=== PATIENT | female | born 1945 | race Caucasian/White ===

== ENCOUNTER 2019-03-28 09:22 | Inpatient (IN) | payer MEDICARE, OTHER ==
[2019-03-28] VITALS (8 sets, daily range): BP systolic 164–204; BP diastolic 87–112
[~2019-03-28] VITALS: Ht 162.6 cm; Wt 74.6 kg
[2019-03-28] MEDS ORDERED: NITROGLYCERIN 0.4 MG SL TABS BTL 25'S SL STA (09:45)
[2019-03-28] MEDS ORDERED: ASPIRIN 81 MG CHEW (CHILDREN'S ASA) PO ONE (09:45)
[2019-03-28] MEDS ORDERED: ASPIRIN 81 MG CHEW (CHILDREN'S ASA) ONE (09:46)
--- NOTE | 2019-03-28 09:51 | ED Chest Pain ---
General Chief Complaint: Chest Pain Stated Complaint: STERNAL PAIN; WEAKNESS Source: patient Exam Limitations: no limitations History of Present Illness Date Seen by Provider: Mar 28, 2019 Time Seen by Provider: 09:48 Initial Comments This 74 year old white female presents with1 hour of severe chest pain which was sharp radiating to her arms and neck. No SOB, diaphoresis, or nausea. No similar episodes in past. Occured while sitting. Has been working hard past few days. Macular deg but no other noted sig PMH. Mother had rheumatic fever but no other sig FH. No smoking, drinking, drugs. Allergies and Home Medications Allergies Coded Allergies: No Known Drug Allergies (Unverified , 03/28/19) Patient Home Medication List Home Medication List Reviewed: Yes Review of Systems Review of Systems Constitutional: No diaphoresis EENTM: No Symptoms Reported Respiratory: Denies Shortness of Air Cardiovascular: See HPI, Chest Pain; Denies Irregular Heart Rate, Denies Palpitations, Denies Syncope Gastrointestinal: Denies Abdominal Pain, Denies Diarrhea Genitourinary: No Symptoms Reported Musculoskeletal: No back pain Skin: No change in color, No rash Psychiatric/Neurological: No Symptoms Reported Endocrine: No Symptoms Reported Hematologic/Lymphatic: No Symptoms Reported Past Zltttak-Bkobbi-Omnhym Hx Past Med/Social Hx: Reviewed Nursing Past Med/Soc Hx Patient Social History Recent Foreign Travel: No Physical Exam Vital Signs Vital Signs - First Documented 03/28/19 09:25 Temp 36.7 Pulse 94 Resp 16 B/P (MAP) 191/93 (125) Pulse Ox 97 O2 Delivery Room Air Capillary Refill : Height, Weight, BMI Height: '" Weight: lbs. oz. kg; BMI Method: General Appearance: No Apparent Distress, WD/WN HEENT: Normal ENT Inspection Neck: Normal Inspection Respiratory: Chest Non Tender, Lungs Clear, Normal Breath Sounds, No Respiratory Distress Cardiovascular: Regular Rate, Rhythm, No Murmur, Normal Peripheral Pulses Gastrointestinal: Normal Bowel Sounds, Non Tender, Soft Extremity: Normal Capillary Refill, Normal Inspection Neurologic/Psychiatric: Oriented x3, No Motor/Sensory Deficits, Normal Mood/Affect Skin: Normal Color, Warm/Dry Progress/Results/Core Measures Results/Orders Lab Results Laboratory Tests Test 03/28/19 09:32 Range/Units White Blood Count 5.8 4.3-11.0 10^3/uL Red Blood Count 4.24 L 4.35-5.85 10^6/uL Hemoglobin 12.6 11.5-16.0 G/DL Hematocrit 38 35-52 % Mean Corpuscular Volume 90 80-99 FL Mean Corpuscular Hemoglobin 30 25-34 PG Mean Corpuscular Hemoglobin Concent 33 32-36 G/DL Red Cell Distribution Width 13.1 10.0-14.5 % Platelet Count 260 130-400 10^3/uL Mean Platelet Volume 10.1 7.4-10.4 FL Neutrophils (%) (Auto) 50 42-75 % Lymphocytes (%) (Auto) 37 12-44 % Monocytes (%) (Auto) 9 0-12 % Eosinophils (%) (Auto) 4 0-10 % Basophils (%) (Auto) 0 0-10 % Neutrophils # (Auto) 2.9 1.8-7.8 X 10^3 Lymphocytes # (Auto) 2.2 1.0-4.0 X 10^3 Monocytes # (Auto) 0.5 0.0-1.0 X 10^3 Eosinophils # (Auto) 0.2 0.0-0.3 10^3/uL Basophils # (Auto) 0.0 0.0-0.1 10^3/uL Prothrombin Time 13.4 12.2-14.7 SEC INR Comment 1.0 0.8-1.4 Activated Partial Thromboplast Time 29 24-35 SEC Sodium Level 140 135-145 MMOL/L Potassium Level 3.6 3.6-5.0 MMOL/L Chloride Level 102 98-107 MMOL/L Carbon Dioxide Level 25 21-32 MMOL/L Anion Gap 13 5-14 MMOL/L Blood Urea Nitrogen 14 7-18 MG/DL Creatinine 0.73 0.60-1.30 MG/DL Estimat Glomerular Filtration Rate > 60 BUN/Creatinine Ratio 19 Glucose Level 118 H 70-105 MG/DL Calcium Level 9.4 8.5-10.1 MG/DL Corrected Calcium 9.1 8.5-10.1 MG/DL Magnesium Level 2.1 1.6-2.4 MG/DL Total Bilirubin 0.5 0.1-1.0 MG/DL Aspartate Amino Transf (AST/SGOT) 24 5-34 U/L Alanine Aminotransferase (ALT/SGPT) 15 0-55 U/L Alkaline Phosphatase 95 40-136 U/L Myoglobin 64.5 10.0-92.0 NG/ML Troponin I < 0.30 <0.30 NG/ML Total Protein 7.6 6.4-8.2 GM/DL Albumin 4.4 3.2-4.5 GM/DL My Orders Orders - TASHA ROLON MD Cbc With Automated Diff (03/28/19 09:44) Magnesium (03/28/19 09:44) Chest 1 View Ap/Pa Only (03/28/19 09:44) Ekg Tracing (03/28/19 09:44) Comprehensive Metabolic Panel (03/28/19 09:44) Myoglobin Serum (03/28/19 09:44) Protime With Inr (03/28/19:44) Partial Thromboplastin Time (03/28/19 09:44) O2 (03/28/19 09:44) Monitor-Rhythm Ecg Trace Only (03/28/19 09:44) Lipid Panel (03/29/19 06:00) Ed Iv/Invasive Line Start (03/28/19 09:44) Troponin I Fs (03/28/19 09:44) Aspirin Chewable Tablet (Baby Aspirin Ch (03/28/19 09:45) Nitroglycerin 0.4 Mg Btl 25's (Nitrostat (03/28/19 09:45) Aspirin Chewable Tablet (Baby Aspirin Ch (03/28/19 09:46) Nitroglycerin Ointment (Nitrobid Ointme (03/28/19 10:45) Medications Given in ED Current Medications Medications Dose Ordered Sig/Yolanda Route Start Time Stop Time Status Last Admin Dose Admin Aspirin 324 mg ONCE ONCE PO 03/28/19 09:45 03/28/19 09:48 DC 03/28/19 09:54 324 MG Nitroglycerin 1 inch ONCE ONCE TOP 03/28/19 10:45 03/28/19 10:46 DC 03/28/19 10:41 1 INCH Vital Signs/I&O 03/28/19 03/28/19 09:25 09:25 Temp 36.7 Pulse 94 Resp 16 B/P (MAP) 191/93 (125) Pulse Ox 97 O2 Delivery Room Air Room Air Progress Progress Note : Time: 10:50 Progress Note Patient's evaluation in the ED demonstrated non-specific EKG changes and a normal troponin. Patient received ASA orally. Her chest pain spontaneously abated after an hour and before receiving nitroglycerin SL. An inch of nitro paste was applied to her anterior chest wall. Telephone consultation was undertaken with Drs. Duvall and Michelle. The patient was transferred for further evaluation to [facility] via EMS in stable condition. Departure Communication (Admissions) Time/Spoke to Admitting Phy: 11:03 Dr. Martinez Time/Spoke to Consulting Phy: 11:03 Dr. Duvall. Impression Primary Impression: Chest pain Qualified Codes: R07.9 - Chest pain, unspecified Disposition: 09 ADMITTED INPATIENT Condition: Improved Admissions Decision to Admit Reason: Admit from ER (General) Decision to Admit/Date: Mar 28, 2019 Time/Decision to Admit Time: 11:04 Departure-Patient Inst. Referrals: NO,LOCAL PHYSICIAN (PCP/Family) Primary Care Physician TASHA ROLON MD Mar 28, 2019 09:51
[2019-03-28 09:52] LABS: HEMATOCRIT 38 % (35-52); HEMOGLOBIN 12.6 G/DL (11.5-16.0); MEAN CORPUSCULAR HEMOGLOBIN 30 PG (25-34); MEAN CORPUSCULAR VOLUME 90 FL (80-99); WHITE BLOOD COUNT 5.8 10^3/uL (4.3-11.0)
[2019-03-28 09:53] LABS: BASOPHILS % (AUTO) 0 % (0-10); EOSINOPHILS # (AUTO) 0.2 10^3/uL (0.0-0.3); EOSINOPHILS % (AUTO) 4 % (0-10); LYMPHOCYTES # (AUTO) 2.2 X 10^3 (1.0-4.0); LYMPHOCYTES % (AUTO) 37 % (12-44); MEAN CORPUSCULAR HGB CONC 33 G/DL (32-36); MEAN PLATELET VOLUME 10.1 FL (7.4-10.4); MONOCYTES # (AUTO) 0.5 X 10^3 (0.0-1.0); MONOCYTES % (AUTO) 9 % (0-12); NEUTROPHILS # (AUTO) 2.9 X 10^3 (1.8-7.8); NEUTROPHILS % (AUTO) 50 % (42-75); PLATELET COUNT 260 10^3/uL (130-400); RED CELL DISTRIBUTION WIDTH 13.1 % (10.0-14.5)
[2019-03-28 09:59] LABS: PROTHROMBIN TIME PATIENT 13.4 SEC (12.2-14.7)
--- NOTE | 2019-03-28 10:00 | Diagnostic Imaging Report ---
PATIENT HISTORY: Chest pain. TECHNIQUE: Single frontal view of the chest. COMPARISON: None FINDINGS: The lung volumes are normal. No focal consolidation is seen. No large pleural effusion or pneumothorax is seen. The cardiomediastinal silhouette is normal in size and contour. No acute osseous abnormality is seen. IMPRESSION: No acute pulmonary abnormality seen. Dictated by: Dictated on workstation # [id number]
[2019-03-28 10:14] LABS: BUN/CREATININE RATIO 19; CALCIUM 9.4 MG/DL (8.5-10.1); CARBON DIOXIDE 25 MMOL/L (21-32); CHLORIDE 102 MMOL/L (98-107); CREATININE SERUM 0.73 MG/DL (0.60-1.30); GFR ESTIMATED > 60; GLUCOSE 118 MG/DL (70-105); MAGNESIUM 2.1 MG/DL (1.6-2.4); POTASSIUM 3.6 MMOL/L (3.6-5.0); SODIUM 140 MMOL/L (135-145)
[2019-03-28 10:15] LABS: ALANINE AMINOTRANSFERASE 15 U/L (0-55); ALBUMIN 4.4 GM/DL (3.2-4.5); ALKALINE PHOSPHATASE 95 U/L (40-136); BILIRUBIN,TOTAL 0.5 MG/DL (0.1-1.0); TOTAL PROTEIN 7.6 GM/DL (6.4-8.2)
[2019-03-28] MEDS ORDERED: NITROGLYCERIN 2% OINT 1 GM UNIT DOSE PACKET TOP ONE (10:45)
[2019-03-28] MEDS ORDERED: NS IV 1000 ML 1,000 ML ONE (13:33)
[2019-03-28] MEDS ORDERED: CATHETER FLUSH 10 ML SYR IV PRN (13:45)
[2019-03-28] MEDS: NS IV 1000 ML 1,000 ML IV SCH (14:14)
[2019-03-28] MEDS ORDERED: FLU QUADRIvalent (5+ YOA) 2019-2020 (AFLURIA) 0.5 ML IM ONE (14:30)
[2019-03-28] MEDS ORDERED: amLODIPine 10 MG (NORVASC) TAB PO NR (14:40)
--- NOTE | 2019-03-28 14:41 | NUR ---
Reported pt's blood pressure to Dr. Duvall, new orders received.
--- NOTE | 2019-03-28 16:11 | Consultation-Cardiology ---
HPI-Cardiology Cardiology Consultation: Date of Consultation 03/28/19 Date of Admission Attending Physician Lray Martinez MD Admitting Physician Candi,Local Physician Consulting Physician Neha DUVALL MD HPI: Time Seen by a Provider: 16:00 Chief Complaint: Chest pain This is a 74 -year-old lady who denies any significant post medical history or post cardiac history. She denies active smoking. Her mother had rheumatic fever but no premature CAD in the family. She presented with one hour of severe chest pain radiating to her arms and neck. No associated cardiac symptoms. No exacerbating or relieving factors. Moderate to severe intensity. Substernal. Review of Systems-Cardiology Review of Systems Constitutional: As described under HPI; No As described under HPI, No no symptoms reported, No chills, No fever, No lightheadedness Eyes: No As described under HPI, No no symptoms reported, No blindness, No blurred vision, No contact lenses, No drainage, No decreased acuity, No foreign body sensation, No pain, No vision change Ears/Nose/Throat: No As described under HPI, No no symptoms reported, No chronic hearing loss, No ear discharge, No ear pain, No nasal drainage, No ulcerations Respiratory: No no symptoms reported; As described under HPI; No As described under HPI, No cough, No orthopnea, No shortness of breath, No SOB with excertion Cardiovascular: No no symptoms reported; As described under HPI; No As described under HPI; chest pain; No edema, No irregular heart rate, No lightheadedness, No palpitations Gastrointestinal: No no symptoms reported, No As described under HPI, No abdomen distended, No abdominal pain, No blood streaked bowels, No constipation, No diarrhea, No nausea, No vomiting, No stool coloration changes Genitourinary: No As described under HPI, No burning, No dysuria, No discharge, No frequency, No flank pain, No hematuria, No urgency : Yes : No Skin: No rash, No skin related problems, No ulcerations Psychiatric/Neurological: No anxiety, No depression, No seizure, No focal weakness, No syncope Hematologic: No bleeding abnormalities IVB-Jgfhlv-Gkynbv Hx Patient Social History Alcohol Use: Denies Use Recreational Drug Use: No Smoking Status: Never a Smoker 2nd Hand Smoke Exposure: No Recent Foreign Travel: No Recent Infectious Disease Expo: No Past Medical History PMH As described under Assessment. Allergies and Home Medications Allergies Coded Allergies: No Known Drug Allergies (Unverified , 03/28/19) Home Medications Vit A/Vit C/Vit E/Zinc/Copper 1 Each Tablet, 1 TAB PO BID, (Reported) Patient Home Medication List Home Medication List Reviewed: Yes Physical Exam-Cardiology Physical Exam Vital Signs/I&O 03/29/19 03/29/19 03/29/19 03/29/19 06:36 08:00 08:00 09:00 Temp 37.1 Pulse 73 88 Resp 16 B/P (MAP) 140/76 (97) 140/76 (97) Pulse Ox 98 98 O2 Delivery Room Air Room Air Room Air 03/29/19 03/29/19 03/29/19 03/29/19 09:00 12:00 12:20 12:36 Pulse 86 B/P (MAP) 148/89 (108) Pulse Ox 95 97 O2 Delivery Room Air Room Air Room Air 03/29/19 16:00 Temp 37.1 Pulse 70 Resp 21 B/P (MAP) 139/97 (111) Pulse Ox 97 O2 Delivery Room Air 03/29/19 00:00 Intake Total 250 ml Output Total 0 ml Balance 250 ml Capillary Refill : Less Than 3 Seconds Constitutional: appears stated age, AAO x 3; No apparent distress; well- developed, well-nourished HEENT: PERRL; No discharge; hearing is well preserved, oral hygience is good; No ulceration, No xanthelasmas are seen Neck: No carotid bruit; carotid pulses are 2 + bilaterally Respiratory: chest is bilaterally symmetric, lungs clear to auscultation Cardiovascular: regular rate-rhythm, S1 and S2 Gastrointestinal: soft, audible bowel sounds; No spleenomegaly Rectal: deferred Extremities: normal range of motion, non-tender, normal inspection; No clubbing, No cyanosis; no lower extremity edema bilateral; No significant edema Neurologic/Psychiatric: no motor/sensory deficits, alert, normal mood/affect, oriented x 3, power is 5/5 both on sides Skin: normal color, warm/dry; No rash, No ulcerations Data Review Labs Laboratory Tests 03/28/19 19:40: Troponin I 0.145H 03/29/19 01:31: Troponin I 0.093H 03/29/19 03:08: White Blood Count 6.4, Red Blood Count 3.90L, Hemoglobin 11.4L, Hematocrit 35, Mean Corpuscular Volume 89, Mean Corpuscular Hemoglobin 29, Mean Corpuscular Hemoglobin Concent 33, Red Cell Distribution Width 13.3, Platelet Count 225, Veronika n Platelet Volume 10.0, Neutrophils (%) (Auto) 75, Lymphocytes (%) (Auto) 15, Monocytes (%) (Auto) 8, Eosinophils (%) (Auto) 2, Basophils (%) (Auto) 0, Neutrophils # (Auto) 4.8, Lymphocytes # (Auto) 1.0, Monocytes # (Auto) 0.5, Eosinophils # (Auto) 0.1, Basophils # (Auto) 0.0, Sodium Level 142, Potassium Level 3.7, Chloride Level 112#H, Carbon Dioxide Level 20L, Anion Gap 10, Blood Urea Nitrogen 10, Creatinine 0.70, Estimat Glomerular Filtration Rate > 60, BUN/Creatinine Ratio 14, Glucose Level 103, Calcium Level 8.9, Corrected Calcium 9.1, Total Bilirubin 0.5, Aspartate Amino Transf (AST/SGOT) 21, Alanine Aminotransferase (ALT/SGPT) 14, Alkaline Phosphatase 73, Total Protein 6.3L, Albumin 3.8, Triglycerides Level 108, Cholesterol Level 173, LDL Cholesterol Direct 131H, VLDL Cholesterol 22, HDL Cholesterol 40 ECG Impression ECG Initial ECG Rhythm: Normal Sinus Comment Left atrial abnormality, LVH, possible inferior Q waves. A/P-Cardiology Assessment/Admission Diagnosis Non-STEMI, Hyperlipidemia, LVH. Plan Non-STEMI, dual antiplatelet therapy. One dose of Lovenox. Will require coronary angiography. Informed consent was taken. All risks and complication were explained in detail. Patient accepted all risk and would like to proceed with coronary angiography and possible PCI. Hyperlipidemia, high-dose statin therapy is recommended. LVH, echocardiogram. Likely due to hypertensive heart disease. Thank you for your consultation. Please call me if you have any questions. Mercedes Duvall MD, FACP, FACC, FSCAI, FHRS, CCDS Interventional Cardiology Cardiac Electrophysiology Vascular Medicine and Endovascular Interventions Clinical Quality Measures AMI/AHF: ASA po Prior to arrival: No DVT/VTE Risk/Contraindication: Risk Factor Score Per Nursin RFS Level Per Nursing on Admit: 2=Moderate Neha DUVALL MD Mar 28, 2019 16:11
[2019-03-28] MEDS ORDERED: ENOXAPARIN 80 MG/0.8 ML (LOVENOX) SYR SC NR (16:30)
[2019-03-28] MEDS ORDERED: TICAGRELOR 90 MG TABLET (BRILINTA) PO NR (16:45)
[2019-03-28] MEDS ORDERED: lisINopril 20 MG (PRINIVIL) TABLET PO NR (16:46)
[2019-03-28] MEDS ORDERED: hydrALAZINE (APESOLINE) 20 MG/ML VIAL IV PRN (19:00)
--- NOTE | 2019-03-28 19:25 | History & Physical-Hospitalist ---
History of Present Illness HPI/Chief Complaint Angelia Ndiaye is a 74-year-old female with past medical history of macular degeneration who presented with chest pain. She reports that the pain never started while she was petting her cat. It was substernal and associated with a pain that went to her neck, jaw, and bilateral arms. She denies any associated shortness of breath, nausea, or diaphoresis. She denies ever having any pain like this before. She does not take any medications regularly. She reports being stressed recently because of the holidays. Source: patient Exam Limitations: no limitations Date Seen 03/28/19 Time Seen by a Provider: 18:30 Attending Physician Lary Tolentino MD PCP No,Local Physician Referring Physician Date of Admission Mar 28, 2019 at 11:20 Home Medications & Allergies Home Medications Reviewed patient Home Medication Reconciliation performed by pharmacy medication reconciliations field evidence technician and/or nursing. Patients Allergies have been reviewed. Allergies Allergies Coded Allergies No Known Drug Allergies (Jstsftaifr20/26/19) Past Nobwiwr-Emdmyu-Lngnpe Hx Past Med/Social Hx: Reviewed Nursing Past Med/Soc Hx Patient Social History Alcohol Use: Denies Use Recreational Drug Use: No Smoking Status: Never a Smoker 2nd Hand Smoke Exposure: No Recent Foreign Travel: No Contact w/other who traveled: No Recent Hopitalizations: No Recent Infectious Disease Expo: No Seasonal Allergies Seasonal Allergies: No Past Medical History HEENT: Macular Degeneration History of Blood Disorders: No Review of Systems Constitutional: no symptoms reported EENTM: no symptoms reported Respiratory: no symptoms reported Cardiovascular: chest pain Gastrointestinal: no symptoms reported Genitourinary: no symptoms reported Musculoskeletal: no symptoms reported Skin: no symptoms reported Psychiatric/Neurological: No Symptoms Reported Physical Exam Physical Exam Vital Signs Vital Signs - First Documented 03/28/19 09:25 Temp 36.7 Pulse 94 Resp 16 B/P (MAP) 191/93 (125) Pulse Ox 97 O2 Delivery Room Air Capillary Refill : Less Than 3 Seconds Height, Weight, BMI Height: '" Weight: lbs. oz. kg; 28.51 BMI Method: General Appearance: No Apparent Distress, WD/WN HEENT: PERRL/EOMI, Pharynx Normal Neck: Normal Inspection, Supple Respiratory: Chest Non Tender, Lungs Clear, Normal Breath Sounds, No Respiratory Distress Cardiovascular: Regular Rate, Rhythm, No Edema, No Murmur Gastrointestinal: Normal Bowel Sounds, Non Tender, Soft Extremity: Normal Capillary Refill, Normal Inspection, Non Tender, No Pedal Edema Neurologic/Psychiatric: Alert, Oriented x3, No Motor/Sensory Deficits, Normal Mood/Affect Skin: Normal Color, Warm/Dry Lymphatic: No Adenopathy Results Results/Procedures Labs Laboratory Tests 03/28/19 09:32 Patient resulted labs reviewed. Imaging: Reviewed Imaging Report Assessment/Plan Admission Diagnosis Chest pain Admission Status: Observation Assessment and Plan NSTEMI Initial troponin negative Repeat troponin on arrival 0.05 Continue to trend troponin Cardiology consulted, appreciate assistance Given aspirin, Brilinta, statin, therapeutic Lovenox, nitroglycerin, and lisinopril Nothing by mouth at midnight for likely left heart catheterization Hypertension Not previously diagnosed Started on lisinopril and amlodipine DVT prophylaxis: Already receiving therapeutic anticoagulation Diagnosis/Problems Diagnosis/Problems (1) NSTEMI (non-ST elevation myocardial infarction) Status: Acute (2) Hypertension Status: Acute Qualifiers: Hypertension type: unspecified Qualified Codes: I10 - Essential (primary) hypertension Clinical Quality Measures AMI/AHF: ASA po Prior to arrival: No DVT/VTE Risk/Contraindication: Risk Factor Score Per Nursin RFS Level Per Nursing on Admit: 2=Moderate LARY TOLENTINO MD Mar 28, 2019 19:25
[2019-03-28] MEDS: NITROGLYCERIN 2% OINT 1 GM UNIT DOSE PACKET TOP SCH (21:00)
[2019-03-29] VITALS (7 sets, daily range): BP systolic 123–148; BP diastolic 70–97
[2019-03-29 03:21] LABS: BASOPHILS % (AUTO) 0 % (0-10); EOSINOPHILS # (AUTO) 0.1 10^3/uL (0.0-0.3); EOSINOPHILS % (AUTO) 2 % (0-10); HEMATOCRIT 35 % (35-52); HEMOGLOBIN 11.4 G/DL (11.5-16.0); LYMPHOCYTES % (AUTO) 15 % (12-44); MEAN CORPUSCULAR HEMOGLOBIN 29 PG (25-34); MEAN CORPUSCULAR HGB CONC 33 G/DL (32-36); MEAN CORPUSCULAR VOLUME 89 FL (80-99); MONOCYTES # (AUTO) 0.5 X 10^3 (0.0-1.0); MONOCYTES % (AUTO) 8 % (0-12); NEUTROPHILS # (AUTO) 4.8 X 10^3 (1.8-7.8); NEUTROPHILS % (AUTO) 75 % (42-75); PLATELET COUNT 225 10^3/uL (130-400); RED CELL DISTRIBUTION WIDTH 13.3 % (10.0-14.5); WHITE BLOOD COUNT 6.4 10^3/uL (4.3-11.0)
[2019-03-29 03:42] LABS: ALANINE AMINOTRANSFERASE 14 U/L (0-55); ALBUMIN 3.8 GM/DL (3.2-4.5); ALKALINE PHOSPHATASE 73 U/L (40-136); BILIRUBIN,TOTAL 0.5 MG/DL (0.1-1.0); BUN/CREATININE RATIO 14; CALCIUM 8.9 MG/DL (8.5-10.1); CARBON DIOXIDE 20 MMOL/L (21-32); CHLORIDE 112 MMOL/L (98-107); GFR ESTIMATED > 60; GLUCOSE 103 MG/DL (70-105); POTASSIUM 3.7 MMOL/L (3.6-5.0); SODIUM 142 MMOL/L (135-145); TOTAL PROTEIN 6.3 GM/DL (6.4-8.2)
[2019-03-29 03:43] LABS: CHOLESTEROL 173 MG/DL (< 200); HDL CHOLESTEROL 40 MG/DL (40-60); TRIGLYCERIDES 108 MG/DL (<150); VLDL CHOLESTEROL 22 MG/DL (5-40)
[2019-03-29] MEDS ORDERED: HEParin 1000 UNIT/ML (10ML VIAL) FOR BOLUS ONE ×2 (08:26→10:44)
[2019-03-29] MEDS ORDERED: LIDOCAINE 1% INJ 20 ML 20 ML VIAL ONE (08:26)
[2019-03-29] MEDS ORDERED: NS IV 1000 ML 3,000 ML ONE (08:26)
[2019-03-29] MEDS ORDERED: MIDAZOLAM 5 MG/5 ML (VERSED) VIAL ONE (08:33)
[2019-03-29] MEDS ORDERED: fentaNYL INJECTION 100 MCG/2 ML AMP ONE (08:33)
[2019-03-29] MEDS: NITROGLYCERIN 2% OINT 1 GM UNIT DOSE PACKET TOP SCH ×2 (08:37→20:53)
[2019-03-29] MEDS: TICAGRELOR 90 MG TABLET (BRILINTA) PO SCH ×3 (08:38→21:00)
[2019-03-29] MEDS: ASPIRIN 81 MG CHEW (CHILDREN'S ASA) PO SCH (08:38)
[2019-03-29] MEDS ORDERED: ASPIRIN 81 MG CHEW (CHILDREN'S ASA) PO SCH (09:00)
[2019-03-29] MEDS: NS IV 1000 ML 1,000 ML IV SCH ×3 (09:00→22:20)
--- NOTE | 2019-03-29 09:14 | NUR ---
0906 PT TO HEART CATH VIA BED ACCOMPANIED BY HEART CATH STAFF.
[2019-03-29] MEDS ORDERED: NITRO DRIP 25000 MCG/D5W 250 ML IV ONE (09:21)
[2019-03-29] MEDS ORDERED: VERAPAMIL 5 MG/2 ML (CALAN) VIAL IV ONE (09:21)
[2019-03-29] MEDS ORDERED: ADENOSINE 3 MG/1 ML (ADENOSCAN) 30ML VIAL IV ONE ×2 (09:58→10:29)
--- NOTE | 2019-03-29 11:34 | Coronary Angiography & PCI ---
Coronary Angiography & PCI DATE OF PROCEDURE: 03/29/19 INDICATION: Non-STEMI. PREOPERATIVE DIAGNOSIS: Non-STEMI. POSTOPERATIVE DIAGNOSIS: Severe three-vessel disease. Successful PCI to the LAD and left circumflex artery. HISTORY: This is a 74-year-old lady with non-STEMI. Therefore, the patient was scheduled for coronary angiography. PROCEDURES PERFORMED: 1.Coronary angiography. 2.Left heart catheterization. 3. FFR to the LAD. 4. PCI to the LAD. 5. PCI to the OM1 COMPLICATIONS: None. SPECIMENS: None. ESTIMATED BLOOD LOSS: 10 mL ANESTHESIA: Conscious sedation ANTICOAGULATION: IV heparin CONTRAST: 203 mL. FLUOROSCOPY: 20.4 minutes. FLOUROSCOPY DOSE: 1532 mgy. PROCEDURE DETAILS: The patient is a 74 female and was brought to the crown and bridge dental lab technician after informed consent was taken. All the risks and complications were explained in detail; this included the risk of bleeding, vascular damage, stroke, VA and even . The patient was draped and prepped in the usual sterile fashion. Access was gained in the right radial artery with a 6 Polish sheath. Coronary angiography and left heart catheterization was performed with the [place] catheter. FINDINGS: 1.Left main: Mild ostial disease. Stenosis severity 10-20 percent. 2.LAD: Moderate to severe proximal disease. Second diagonal artery has severe ostial disease. 3.Left circumflex artery: Severe disease of OM1 with CAREN 2 flow. Stenosis severity 99 percent. This is likely the culprit vessel. 4.RCA: Severe ostial disease with dampening. Severe proximal/mid RCA stenosis. 5.Left heart catheterization: LV pressure 105/4 mmHg. LVEDP 9 mmHg. Aortic pressure 99/66 mmHg. No gradient across the aortic valve. LV gram not done. RECOMMENDATIONS: 1. FFR to the LAD is recommended. 2. PCI to the LAD is recommended. 3. PCI to the OM1 artery is recommended. INTERVENTION DETAILS: JL 3.5 guide catheter, FFR guidewire, IV heparin for anticoagulation. The patient was on dual antiplatelet therapy. The lesion in the LAD was crossed with the FFR wire. Baseline FFR was 0.92. Adenosine was given at 140 g per KG per minute. Lowest FFR was 0.78 which is significant. We then took a Xience Flora 2.5 x 38 mm drug-eluting stent and deployed it at 14 anand for 33 seconds. Postdilatation was done with an NC Quantum 3.0 x 30 mm balloon at 16 anand for 38 seconds. Excellent results. The wire was taken out. We tried to use the same wire for the OM artery however we were not able to cross the lesion. We therefore changed to a whisper extra-support wire. We were able to cross the lesion in the OM artery. We then direct stented with a Xience Flora 2.25 x 23 mm stent at 12 anand for 51 seconds. Postdilatation was done with an NC Quantum 2.5 x 20 mm balloon at 16 anand for 36 seconds. No residual stenosis with excellent CAREN-3 flow. Patient tolerated procedure well and did not have any complication. CONCLUSIONS: 1. Severe LAD and OM1 disease. Successful PCI. OM1 disease was the culprit lesion with 99 percent stenosis and CAREN 2 flow. 2. Severe ostial RCA and proximal/mid RCA stenosis. Staged procedure will be done. 3. Long-term dual antiplatelet therapy. Aggressive management of atherosclerotic heart disease. 4. IV fluids. Echocardiogram. Mercedes Duvall MD, FACP, FACC, [facility] Interventional Cardiology Neha DUVALL MD Mar 29, 2019 11:34
--- NOTE | 2019-03-29 11:34 | Cardiac Procedure Note-CS/ASA ---
Pre-Procedure Note Pre-Op Procedure Note H&P Reviewed The H&P was reviewed, patient examined and no changes noted. Date H&P Reviewed: Mar 29, 2019 Time H&P Reviewed: 09:20 Conscious Sedation Pre-Proced Time 09:20 ASA Score 3 For ASA 3 and 4: Consider anesthesia and medical clearance. Also, for patients with a history of failed moderate sedation consider anesthesia. Airway Lungs Heart ASA score ASA 1: a normal healthy patient ASA 2: a patient with a mild systemic disease (mid diabetes, controlled hypertension, obesity ASA 3: a patient with a severe systemic disease that limits activity (angina, COPD, prior Myocardial infarction) ASA 4: a patient with an incapacitating disease that is a constant threat to life (CHF, renal failure) ASA 5: a moribund patient not expected to survive 24 hrs. (ruptured aneurysm) ASA 6: a declared brain- patient whose organs are being harvested. For emergent operations, add the letter E after the classification Mallampati Classification Grade 1 Sedation Plan Analgesia, Amnesia, Plan communicated to team members, Discussed options with patient/fam, Discussed risks with patient/fam The patient is an appropriate candidate to undergo the planned procedure, sedation, and anesthesia. The patient immediately re-assessed prior to indication. Neha DOHERTY MD Mar 29, 2019 11:34
[2019-03-29] MEDS ORDERED: PATIENT MAY USE OWN MEDS, ALL PO SCH (11:45)
[2019-03-29] MEDS: meTOprolol TARTRATE 50 MG (LOPRESSOR) TAB PO SCH ×2 (12:28→20:52)
[2019-03-29] MEDS ORDERED: BETA1TAB15 PO (13:58)
--- NOTE | 2019-03-29 13:59 | NUR ---
PATIENT STATES SHE DOES NOT TAKE ANY PRESCRIPTION MEDICATIONS. SHE TAKES PRESERVISION OTC BID.
--- NOTE | 2019-03-29 16:33 | Progress Note - Hospitalist ---
Subjective HPI/CC On Admission Date Seen by Provider: Mar 29, 2019 Time Seen by Provider: 08:20 Angelia Ndiaye is a 74-year-old female with past medical history of macular degeneration who presented with chest pain. She reports that the pain never started while she was petting her cat. It was substernal and associated with a pain that went to her neck, jaw, and bilateral arms. She denies any associated shortness of breath, nausea, or diaphoresis. She denies ever having any pain like this before. She does not take any medications regularly. She reports being stressed recently because of the holidays. Subjective/Events-last exam She denies any chest pain. She denies any shortness of breath. She denies any nausea or vomiting. Denies any diaphoresis. Objective Exam Vital Signs Vital Signs Date Time Temp Pulse Resp B/P (MAP) Pulse Ox O2 Delivery O2 Flow Rate FiO2 03/29/19 16:00 37.1 70 21 139/97 (111) 97 Room Air Capillary Refill : NONE General Appearance: No Apparent Distress, WD/WN HEENT: PERRL/EOMI, Pharynx Normal Neck: Normal Inspection, Supple Respiratory: Lungs Clear, Normal Breath Sounds, No Respiratory Distress Cardiovascular: Regular Rate, Rhythm, No Edema, No Murmur Gastrointestinal: Normal Bowel Sounds, Non Tender, Soft Extremity: Normal Inspection, Non Tender, No Pedal Edema Neurologic/Psychiatric: Alert, Oriented x3, No Motor/Sensory Deficits, Normal Mood/Affect Skin: Normal Color, Warm/Dry Lymphatic: No Adenopathy Results/Procedures Lab Laboratory Tests 03/29/19 03:08 Patient resulted labs reviewed. Imaging: Reviewed Imaging Report Assessment/Plan Assessment and Plan Assess & Plan/Chief Complaint NSTEMI Troponin peaked at 0.145, trending down Cardiology consulted, appreciate assistance Given aspirin, Brilinta, statin, therapeutic Lovenox, nitroglycerin, and lisinopril Planning for left heart catheterization today Hypertension Not previously diagnosed Started on lisinopril and amlodipine Hyperlipidemia Continue statin DVT prophylaxis: Already receiving therapeutic anticoagulation Diagnosis/Problems Diagnosis/Problems (1) NSTEMI (non-ST elevation myocardial infarction) Status: Acute (2) Hypertension Status: Acute Qualifiers: Hypertension type: unspecified Qualified Codes: I10 - Essential (primary) hypertension (3) Hyperlipidemia Status: Chronic Clinical Quality Measures AMI/AHF: ASA po Prior to arrival: No DVT/VTE Risk/Contraindication: Risk Factor Score Per Nursin RFS Level Per Nursing on Admit: 2=Moderate MOHINI TOLENTINO MD Mar 29, 2019 16:33
--- NOTE | 2019-03-29 17:11 | Cardiology Progress Note ---
Cardiology SOAP Progress Note Subjective: No further chest pain. Objective: I&O/Vital Signs 03/29/19 03/29/19 03/29/19 03/29/19 06:36 08:00 08:00 09:00 Temp 37.1 Pulse 73 88 Resp 16 B/P (MAP) 140/76 (97) 140/76 (97) Pulse Ox 98 98 O2 Delivery Room Air Room Air Room Air 03/29/19 03/29/19 03/29/19 03/29/19 09:00 12:00 12:20 12:36 Pulse 86 B/P (MAP) 148/89 (108) Pulse Ox 95 97 O2 Delivery Room Air Room Air Room Air 03/29/19 16:00 Temp 37.1 Pulse 70 Resp 21 B/P (MAP) 139/97 (111) Pulse Ox 97 O2 Delivery Room Air 03/29/19 00:00 Intake Total 250 ml Output Total 0 ml Balance 250 ml Constitutional: appears stated age, AAO x 3; No apparent distress; well- developed, well-nourished Respiratory: chest is bilaterally symmetric, lungs clear to auscultation Cardiovascular: regular rate-rhythm, S1 and S2 Gastrointestional: soft, audible bowel sounds; No spleenomegaly Extremities: normal range of motion, non-tender, normal inspection; No clubbing, No cyanosis; no lower extremity edema bilateral; No significant edema Neurologic/Psychiatric: no motor/sensory deficits, alert, normal mood/affect, oriented x 3, power is 5/5 both on sides Skin: normal color, warm/dry; No rash, No ulcerations Results/Procedures: Labs Laboratory Tests 03/28/19 19:40: Troponin I 0.145H 03/29/19 01:31: Troponin I 0.093H 03/29/19 03:08: White Blood Count 6.4, Red Blood Count 3.90L, Hemoglobin 11.4L, Hematocrit 35, Mean Corpuscular Volume 89, Mean Corpuscular Hemoglobin 29, Mean Corpuscular Hemoglobin Concent 33, Red Cell Distribution Width 13.3, Platelet Count 225, Mean Platelet Volume 10.0, Neutrophils (%) (Auto) 75, Lymphocytes (%) (Auto) 15, Monocytes (%) (Auto) 8, Eosinophils (%) (Auto) 2, Basophils (%) (Auto) 0, Neutrophils # (Auto) 4.8, Lymphocytes # (Auto) 1.0, Monocytes # (Auto) 0.5, Eosinophils # (Auto) 0.1, Basophils # (Auto) 0.0, Sodium Level 142, Potassium Level 3.7, Chloride Level 112#H, Carbon Dioxide Level 20L, Anion Gap 10, Blood Urea Nitrogen 10, Creatinine 0.70, Estimat Glomerular Filtration Rate > 60, BUN/Creatinine Ratio 14, Glucose Level 103, Calcium Level 8.9, Corrected Calcium 9.1, Total Bilirubin 0.5, Aspartate Amino Transf (AST/SGOT) 21, Alanine Aminotransferase (ALT/SGPT) 14, Alkaline Phosphatase 73, Total Protein 6.3L, Albumin 3.8, Triglycerides Level 108, Cholesterol Level 173, LDL Cholesterol Direct 131H, VLDL Cholesterol 22, HDL Cholesterol 40 A/P: Assessment/Dx: Non-STEMI, Hyperlipidemia, LVH. Plan: Non-STEMI, dual antiplatelet therapy. One dose of Lovenox. Will require coronary angiography. Informed consent was taken. All risks and complication were explained in detail. Patient accepted all risk and would like to proceed with coronary angiography and possible PCI. Coronary angiography scheduled today. Hyperlipidemia, high-dose statin therapy is recommended. LVH, echocardiogram. Likely due to hypertensive heart disease. Thank you for your consultation. Please call me if you have any questions. Mercedes Duvall MD, FACP, FACC, FSCAI, FHRS, CCDS Interventional Cardiology Cardiac Electrophysiology Vascular Medicine and Endovascular Interventions Clinical Quality Measures AMI/AHF: ASA po Prior to arrival: Neha Snyder MD Mar 29, 2019 17:11
[2019-03-30] VITALS (13 sets, daily range): BP systolic 101–147; BP diastolic 61–86
[2019-03-30] MEDS: NS IV 1000 ML 1,000 ML IV SCH ×3 (02:18→10:00)
[2019-03-30 03:43] LABS: HEMOGLOBIN 10.4 G/DL (11.5-16.0); MEAN PLATELET VOLUME 10.1 FL (7.4-10.4); RED CELL DISTRIBUTION WIDTH 13.4 % (10.0-14.5); WHITE BLOOD COUNT 6.6 10^3/uL (4.3-11.0)
[2019-03-30 04:03] LABS: BUN/CREATININE RATIO 14; CALCIUM 8.6 MG/DL (8.5-10.1); CARBON DIOXIDE 18 MMOL/L (21-32); CHLORIDE 112 MMOL/L (98-107); GFR ESTIMATED > 60; GLUCOSE 84 MG/DL (70-105); POTASSIUM 3.8 MMOL/L (3.6-5.0); SODIUM 139 MMOL/L (135-145)
[2019-03-30] MEDS: NITROGLYCERIN 2% OINT 1 GM UNIT DOSE PACKET TOP SCH ×2 (08:14→22:15)
[2019-03-30] MEDS: lisINopril 5 MG (PRINIVIL) TABLET PO SCH (08:14)
[2019-03-30] MEDS: TICAGRELOR 90 MG TABLET (BRILINTA) PO SCH ×3 (08:14→22:14)
[2019-03-30] MEDS: ASPIRIN 81 MG CHEW (CHILDREN'S ASA) PO SCH (08:14)
[2019-03-30] MEDS: meTOprolol TARTRATE 50 MG (LOPRESSOR) TAB PO SCH ×2 (08:15→22:14)
[2019-03-30] MEDS ORDERED: ASPIRIN E.C. 81 MG (ECOTRIN) TAB PO SCH (09:00)
[2019-03-30] MEDS ORDERED: MIDAZOLAM 5 MG/5 ML (VERSED) VIAL ONE (09:04)
[2019-03-30] MEDS ORDERED: LIDOCAINE 1% INJ 20 ML 20 ML VIAL ONE (09:04)
[2019-03-30] MEDS ORDERED: NITRO DRIP 25000 MCG/D5W 0 ML IV ONE (09:05)
[2019-03-30] MEDS ORDERED: NS IV 1000 ML 3,000 ML ONE (09:05)
[2019-03-30] MEDS ORDERED: HEParin 1000 UNIT/ML (10ML VIAL) FOR BOLUS ONE (09:05)
[2019-03-30] MEDS ORDERED: fentaNYL INJECTION 100 MCG/2 ML AMP ONE (09:05)
--- NOTE | 2019-03-30 10:46 | Cardiac Procedure Note-CS/ASA ---
Pre-Procedure Note Pre-Op Procedure Note H&P Reviewed The H&P was reviewed, patient examined and no changes noted. Date H&P Reviewed: Mar 30, 2019 Time H&P Reviewed: 09:20 Conscious Sedation Pre-Proced Time 09:20 ASA Score 3 For ASA 3 and 4: Consider anesthesia and medical clearance. Also, for patients with a history of failed moderate sedation consider anesthesia. Airway Lungs Heart ASA score ASA 1: a normal healthy patient ASA 2: a patient with a mild systemic disease (mid diabetes, controlled hypertension, obesity ASA 3: a patient with a severe systemic disease that limits activity (angina, COPD, prior Myocardial infarction) ASA 4: a patient with an incapacitating disease that is a constant threat to life (CHF, renal failure) ASA 5: a moribund patient not expected to survive 24 hrs. (ruptured aneurysm) ASA 6: a declared brain- patient whose organs are being harvested. For emergent operations, add the letter E after the classification Mallampati Classification Grade 1 Sedation Plan Analgesia, Amnesia, Plan communicated to team members, Discussed options with patient/fam, Discussed risks with patient/fam The patient is an appropriate candidate to undergo the planned procedure, sedation, and anesthesia. The patient immediately re-assessed prior to indication. Neha DOHERTY MD Mar 30, 2019 10:46
--- NOTE | 2019-03-30 10:56 | Coronary Angiography & PCI ---
Coronary Angiography & PCI DATE OF PROCEDURE: 03/30/19 INDICATION: Non-STEMI. PREOPERATIVE DIAGNOSIS: Non-STEMI. POSTOPERATIVE DIAGNOSIS: Staged PCI to the RCA today. HISTORY: This is a 74-year-old lady with no significant past medical history. She presented with non-STEMI. Coronary angiography done yesterday showed triple vessel disease. FFR to the LAD was 0.78 therefore PCI was done. Culprit vessel was a subtotal OM 1 with CAREN 2 flow which was also treated with one drug- eluting stent. Patient had severe ostial RCA and mid RCA stenosis. We planned a stage procedure for the RCA today. PROCEDURES PERFORMED: 1.PCI to the ostial/proximal/mid RCA. COMPLICATIONS: None. SPECIMENS: None. ESTIMATED BLOOD LOSS: 10 mL ANESTHESIA: Conscious sedation ANTICOAGULATION: IV heparin CONTRAST: 160 mL. FLUOROSCOPY: 19.4 minutes. FLOUROSCOPY DOSE: 1594 mgy. PROCEDURE DETAILS: The patient is a 74 female and was brought to the lab nurse after informed consent was taken. All the risks and complications were explained in detail; this included the risk of bleeding, vascular damage, stroke, SD and even . The patient was draped and prepped in the usual sterile fashion. Access was gained in the right femoral artery with a 6 Chadian sheath. FINDINGS: 1.RCA: Severe ostial stenosis. Stenosis severity 99 percent. Calcified vessel. Severe proximal/mid RCA stenosis. Stenosis severity 80 percent. INTERVENTION DETAILS: JR4 guide catheter with side holes., Whisper extra-support guidewire, IV heparin for anticoagulation. Patient was already on dual antiplatelet therapy with aspirin and Brilinta. ACT was over 200 seconds. The lesion was crossed with the whisper extra support wire. The tip of the wire was placed in the distal PDA. We first went in with an NC Quantum 3.0 x 15 mm balloon and performed predilatation to the entire mid/proximal/ostial RCA. Inflations were done at 12 anand for 33 seconds, 12 anand for 43 seconds, 12 anand for 38 seconds, 12 anand for 27 seconds, 12 anand for 30 seconds, 18 anand for 40 seconds. We then placed a Xience Flora 3.5 x 33 mm stent at 16 anand for 21 seconds. The stent was pulled back a little bit and the mid and proximal segments were dilated with the same stent balloon at 16 anand for 32 seconds. We then went in with a science Flora 4 x 18 mm drug-eluting stent and very carefully placed it in the ostium of the RCA. We intentionally kept 1-2 struts outside the ostium so that we definitely cover the ostium. The stent was deployed at 16 anand for 35 seconds. We did another inflation with the same stent balloon at 20 anand for 26 seconds. We then took a NC Quantum 4.0 x 15 mm balloon and performed balloon dilatation of the overlap between this 2 stents at 12 anand for 8 seconds. We postdilated the entire proximal/ostium of the RCA with further dilatation at 14 anand for 14 seconds, 14 anand for 15 seconds, 18 anand for 20 seconds, 18 anand for 21 seconds. Excellent results with CAREN 3 flow. The wire and balloon were taken out and final pictures showed excellent results. Patient tolerated procedure well and did not have any complication. Right femoral artery was closed with a minx device. CONCLUSIONS: 1. Staged successful PCI to the ostium of the RCA and proximal/midsegment with total of 2 stents. 2. Continue long-term dual antiplatelet therapy. 3. Aggressive secondary prevention measures. 4. IV fluids. M. Michael Duvall MD, FACP, FACC, [facility] Interventional Cardiology Neha DUVALL MD Mar 30, 2019 10:56
--- NOTE | 2019-03-30 13:16 | Progress Note - Hospitalist ---
Subjective HPI/CC On Admission Date Seen by Provider: Mar 30, 2019 Time Seen by Provider: 08:15 Angelia Ndiaye is a 74-year-old female with past medical history of macular degeneration who presented with chest pain. She reports that the pain never started while she was petting her cat. It was substernal and associated with a pain that went to her neck, jaw, and bilateral arms. She denies any associated shortness of breath, nausea, or diaphoresis. She denies ever having any pain like this before. She does not take any medications regularly. She reports being stressed recently because of the holidays. Subjective/Events-last exam she has no complaints this morning. She denies any chest pain or shortness of breath. She denies any pain in her right wrist. She denies any fevers or chills. She denies any abdominal pain. She denies any nausea or vomiting. Objective Exam Vital Signs Vital Signs Date Time Temp Pulse Resp B/P (MAP) Pulse Ox O2 Delivery O2 Flow Rate FiO2 03/30/19 13:00 64 16 113/61 (78) 95 Room Air 03/30/19 12:00 36.6 Capillary Refill : Less Than 3 Seconds General Appearance: No Apparent Distress, WD/WN HEENT: PERRL/EOMI Neck: Supple Respiratory: Lungs Clear, Normal Breath Sounds, No Respiratory Distress Cardiovascular: Regular Rate, Rhythm, No Edema, No Murmur Gastrointestinal: Normal Bowel Sounds, Non Tender, Soft Extremity: Normal Inspection, Non Tender, No Pedal Edema Neurologic/Psychiatric: Alert, Oriented x3, No Motor/Sensory Deficits, Normal Mood/Affect Skin: Warm/Dry, Ecchymosis (right wrist) Results/Procedures Lab Laboratory Tests 03/30/19 03:29 Patient resulted labs reviewed. Imaging: Reviewed Imaging Report Assessment/Plan Assessment and Plan Assess & Plan/Chief Complaint NSTEMI Coronary artery disease Cardiology consulted, appreciate assistance continue aspirin, Brilinta, statin, metoprolol, and lisinopril underwent left heart catheterization yesterday with 2 stents placed in the LAD and left circumflex Planning for staged PCI with repeat left heart catheterization today and further stenting of the RCA Hypertension continue metoprolol and lisinopril Hyperlipidemia Continue statin DVT prophylaxis: Lovenox Diagnosis/Problems Diagnosis/Problems (1) NSTEMI (non-ST elevation myocardial infarction) Status: Acute (2) Hypertension Status: Acute Qualifiers: Hypertension type: unspecified Qualified Codes: I10 - Essential (primary) hypertension (3) Hyperlipidemia Status: Chronic Clinical Quality Measures AMI/AHF: ASA po Prior to arrival: No DVT/VTE Risk/Contraindication: Risk Factor Score Per Nursin RFS Level Per Nursing on Admit: 2=Moderate MOHINI TOLENTINO MD Mar 30, 2019 13:16
--- NOTE | 2019-03-30 13:46 | Cardiology Progress Note ---
Cardiology SOAP Progress Note Subjective: No further chest pain Objective: I&O/Vital Signs 03/30/19 03/30/19 03/30/19 03/30/19 04:00 04:00 07:00 08:00 Temp 36.5 36.8 Pulse 68 76 86 Resp 18 18 B/P (MAP) 115/73 (87) 132/81 (98) Pulse Ox 95 95 96 O2 Delivery Room Air Room Air Room Air 03/30/19 03/30/19 03/30/19 03/30/19 08:00 08:47 11:05 11:15 Pulse 64 64 Resp 8 13 B/P (MAP) 147/80 (102) 147/80 (102) Pulse Ox 96 96 97 95 O2 Delivery Room Air Room Air Room Air Room Air 03/30/19 03/30/19 03/30/19 03/30/19 11:30 11:30 11:45 12:00 Pulse 64 63 65 Resp 13 18 10 B/P (MAP) 131/69 (89) 110/72 (85) 102/64 (77) Pulse Ox 95 96 96 93 O2 Delivery Room Air Room Air Room Air Room Air 03/30/19 03/30/19 03/30/19 03/30/19 12:00 12:30 12:31 13:00 Temp 36.6 Pulse 66 61 64 Resp 11 16 B/P (MAP) 105/86 (92) 113/61 (78) Pulse Ox 95 95 O2 Delivery Room Air Room Air 03/30/19 00:00 Intake Total 450 ml Balance 450 ml Constitutional: appears stated age, AAO x 3; No apparent distress; well- developed, well-nourished Respiratory: chest is bilaterally symmetric, lungs clear to auscultation Cardiovascular: regular rate-rhythm, S1 and S2 Gastrointestional: soft, audible bowel sounds; No spleenomegaly Extremities: normal range of motion, non-tender, normal inspection; No clubbing, No cyanosis; no lower extremity edema bilateral; No significant edema Neurologic/Psychiatric: no motor/sensory deficits, alert, normal mood/affect, oriented x 3, power is 5/5 both on sides Skin: normal color, warm/dry; No rash, No ulcerations Results/Procedures: Labs Laboratory Tests 03/30/19 03:29: White Blood Count 6.6, Red Blood Count 3.54L, Hemoglobin 10.4L, Hematocrit 32L, Mean Corpuscular Volume 90, Mean Corpuscular Hemoglobin 29, Mean Corpuscular Hemoglobin Concent 33, Red Cell Distribution Width 13.4, Platelet Count 213, Mean Platelet Volume 10.1, Sodium Level 139, Potassium Level 3.8, Chloride Level 112H, Carbon Dioxide Level 18L, Anion Gap 9, Blood Urea Nitrogen 10, Creatinine 0.70, Estimat Glomerular Filtration Rate > 60, BUN/Creatinine Ratio 14, Glucose Level 84, Calcium Level 8.6 A/P: Assessment/Dx: Non-STEMI, Hyperlipidemia, LVH. Plan: Non-STEMI, dual antiplatelet therapy. Coronary angiography done 03/29/2019 shows severe triple-vessel disease. PCI to the LAD and OM1 were done. Stage procedure to the ostium of the RCA and mid RCA will be done 03/30/2019. Hyperlipidemia, high-dose statin therapy is recommended. LVH, echocardiogram. Likely due to hypertensive heart disease. Thank you for your consultation. Please call me if you have any questions. Mercedes Duvall MD, FACP, FACC, FSCAI, FHRS, CCDS Interventional Cardiology Cardiac Electrophysiology Vascular Medicine and Endovascular Interventions Clinical Quality Measures AMI/AHF: ASA po Prior to arrival: Neha Snyder MD Mar 30, 2019 13:46
[2019-03-30] MEDS ORDERED: ENOXAPARIN 40 MG/0.4 ML (LOVENOX) SYR SC SCH (21:00)
[2019-03-31] VITALS: BP 131/69
[2019-03-31 04:00] VITALS: BP 100/60
[2019-03-31 04:02] LABS: BASOPHILS % (AUTO) 0 % (0-10); EOSINOPHILS # (AUTO) 0.1 10^3/uL (0.0-0.3); EOSINOPHILS % (AUTO) 1 % (0-10); HEMATOCRIT 29 % (35-52); HEMOGLOBIN 9.5 G/DL (11.5-16.0); LYMPHOCYTES # (AUTO) 1.3 X 10^3 (1.0-4.0); LYMPHOCYTES % (AUTO) 15 % (12-44); MEAN CORPUSCULAR HEMOGLOBIN 29 PG (25-34); MEAN CORPUSCULAR HGB CONC 33 G/DL (32-36); MEAN CORPUSCULAR VOLUME 90 FL (80-99); MONOCYTES # (AUTO) 0.8 X 10^3 (0.0-1.0); MONOCYTES % (AUTO) 10 % (0-12); NEUTROPHILS # (AUTO) 6.1 X 10^3 (1.8-7.8); NEUTROPHILS % (AUTO) 74 % (42-75); PLATELET COUNT 228 10^3/uL (130-400); RED CELL DISTRIBUTION WIDTH 13.4 % (10.0-14.5); WHITE BLOOD COUNT 8.4 10^3/uL (4.3-11.0)
[2019-03-31 04:19] LABS: ALANINE AMINOTRANSFERASE 11 U/L (0-55); ALBUMIN 3.4 GM/DL (3.2-4.5); ALKALINE PHOSPHATASE 59 U/L (40-136); BILIRUBIN,TOTAL 0.7 MG/DL (0.1-1.0); BUN/CREATININE RATIO 21; CALCIUM 8.6 MG/DL (8.5-10.1); CARBON DIOXIDE 17 MMOL/L (21-32); CHLORIDE 109 MMOL/L (98-107); CREATININE SERUM 0.81 MG/DL (0.60-1.30); GFR ESTIMATED > 60; GLUCOSE 73 MG/DL (70-105); MAGNESIUM 1.9 MG/DL (1.6-2.4); PHOSPHORUS 3.7 MG/DL (2.3-4.7); POTASSIUM 3.7 MMOL/L (3.6-5.0); SODIUM 138 MMOL/L (135-145); TOTAL PROTEIN 5.6 GM/DL (6.4-8.2)
[2019-03-31 08:00] VITALS: BP 103/60
[2019-03-31] MEDS: TICAGRELOR 90 MG TABLET (BRILINTA) PO SCH (08:05)
[2019-03-31] MEDS: meTOprolol TARTRATE 50 MG (LOPRESSOR) TAB PO SCH (08:05)
[2019-03-31] MEDS: lisINopril 5 MG (PRINIVIL) TABLET PO SCH (08:05)
[2019-03-31] MEDS: ASPIRIN 81 MG CHEW (CHILDREN'S ASA) PO SCH (08:05)
[2019-03-31] MEDS: NITROGLYCERIN 2% OINT 1 GM UNIT DOSE PACKET TOP SCH (08:06)
[2019-03-31] MEDS ORDERED: ATOR40TA PO (08:54)
[2019-03-31] MEDS ORDERED: LISI-556 PO (08:54)
[2019-03-31] MEDS ORDERED: METO-333 PO (08:54)
[2019-03-31] MEDS ORDERED: TICA90TA PO (08:54)
[2019-03-31] MEDS ORDERED: ASPI-999 PO (08:54)
--- NOTE | 2019-03-31 17:37 | Cardiology Progress Note ---
Cardiology SOAP Progress Note Subjective: No cardiac complaints. Objective: I&O/Vital Signs 03/31/19 03/31/19 03/31/19 03/31/19 07:00 07:23 08:00 08:00 Temp 37.3 Pulse 73 80 Resp 18 B/P (MAP) 103/60 (74) Pulse Ox 97 97 O2 Delivery Room Air Room Air 03/31/19 03/31/19 03/31/19 03/31/19 08:12 11:15 11:38 12:11 Temp 37.3 Pulse 66 Pulse Ox 96 95 O2 Delivery Room Air Room Air 03/31/19 00:00 Intake Total 850 ml Output Total 75 ml Balance 775 ml Constitutional: appears stated age, AAO x 3; No apparent distress; well- developed, well-nourished Respiratory: chest is bilaterally symmetric, lungs clear to auscultation Cardiovascular: regular rate-rhythm, S1 and S2 Gastrointestional: soft, audible bowel sounds; No spleenomegaly Extremities: normal range of motion, non-tender, normal inspection; No clubbing, No cyanosis; no lower extremity edema bilateral; No significant edema Neurologic/Psychiatric: no motor/sensory deficits, alert, normal mood/affect, oriented x 3, power is 5/5 both on sides Skin: normal color, warm/dry; No rash, No ulcerations Results/Procedures: Labs Laboratory Tests 03/31/19 03:41: White Blood Count 8.4, Red Blood Count 3.25L, Hemoglobin 9.5L, Hematocrit 29L, Mean Corpuscular Volume 90, Mean Corpuscular Hemoglobin 29, Mean Corpuscular Hemoglobin Concent 33, Red Cell Distribution Width 13.4, Platelet Count 228, Mean Platelet Volume 10.0, Neutrophils (%) (Auto) 74, Lymphocytes (%) (Auto) 15, Monocytes (%) (Auto) 10, Eosinophils (%) (Auto) 1, Basophils (%) (Auto) 0, Neutrophils # (Auto) 6.1, Lymphocytes # (Auto) 1.3, Monocytes # (Auto) 0.8, Eosinophils # (Auto) 0.1, Basophils # (Auto) 0.0, Sodium Level 138, Potassium Level 3.7, Chloride Level 109H, Carbon Dioxide Level 17L, Anion Gap 12, Blood Urea Nitrogen 17, Creatinine 0.81, Estimat Glomerular Filtration Rate > 60, BUN/Creatinine Ratio 21, Glucose Level 73, Calcium Level 8.6, Corrected Calcium 9.1, Phosphorus Level 3.7, Magnesium Level 1.9, Total Bilirubin 0.7, Aspartate Amino Transf (AST/SGOT) 19, Alanine Aminotransferase (ALT/SGPT) 11, Alkaline Phosphatase 59, Total Protein 5.6L, Albumin 3.4 A/P: Assessment/Dx: Non-STEMI, Hyperlipidemia, LVH. Plan: Non-STEMI, dual antiplatelet therapy. Coronary angiography done 03/29/2019 shows severe triple-vessel disease. PCI to the LAD and OM1 were done. Stage procedure to the ostium of the RCA and mid RCA done 03/30/2019. Hyperlipidemia, high-dose statin therapy is recommended. LVH, echocardiogram. Likely due to hypertensive heart disease. Patient will be discharged today Thank you for your consultation. Please call me if you have any questions. Mercedes Duvall MD, FACP, FACC, FSCAI, FHRS, CCDS Interventional Cardiology Cardiac Electrophysiology Vascular Medicine and Endovascular Interventions Clinical Quality Measures AMI/AHF: ASA po Prior to arrival: Neha Snyder MD Mar 31, 2019 17:37
== END 2019-03-31 14:20 | disposition home or self-care (01) | DRG 246 ==
LOC: ER FS 09:25 → ICU 11:20 → OBSVTOIN 03-29 09:24
PROVIDERS: ADMIT Internal Medicine; ATTEND Internal Medicine
PROC: 027135Z Dilation of Coronary Artery, Two Arteries with Two Drug-eluting Intraluminal Devices, Percutaneous Approach (ICD-10-PCS; principal; 2019-03-29)
PROC: 4A023N7 Measurement of Cardiac Sampling and Pressure, Left Heart, Percutaneous Approach (ICD-10-PCS; 2019-03-29)
PROC: B2111ZZ Fluoroscopy of Multiple Coronary Arteries using Low Osmolar Contrast (ICD-10-PCS; 2019-03-29)
PROC: 027035Z Dilation of Coronary Artery, One Artery with Two Drug-eluting Intraluminal Devices, Percutaneous Approach (ICD-10-PCS; 2019-03-30)
PROC: 4A023N7 Measurement of Cardiac Sampling and Pressure, Left Heart, Percutaneous Approach (ICD-10-PCS; 2019-03-30)
DX: I21.4 Non-ST elevation (NSTEMI) myocardial infarction (principal); I11.9 Hypertensive heart disease without heart failure; I25.10 Atherosclerotic heart disease of native coronary artery without angina pectoris; E78.5 Hyperlipidemia, unspecified; I51.7 Cardiomegaly
CPT/HCPCS: 36415; 71045; 80048; 80053; 80061; 83735; 83874; 84100; 84484; 85025; 85027; 85347; 85610; 85730; 93005; 93041; 93306; 93458

== ENCOUNTER 2020-08-11 23:08 | Emergency (ER) | payer MEDICARE ==
[~2020-08-11 23:08] MED LIST: ASPI-999 PO; ATOR40TA PO; BETA1TAB15 PO; LISI-729 PO; METO-333 PO; TICA90TA PO
[2020-08-11] MEDS ORDERED: KETOROLAC 30 MG/ML VIAL IVP STA (23:22)
[2020-08-11] MEDS ORDERED: NS IV 1000 ML 1,000 ML IV STA (23:22)
--- NOTE | 2020-08-11 23:22 | ED General ---
General Stated Complaint: VOMITING,LOW BACK PAIN History of Present Illness Date Seen by Provider: August 11, 2020 Time Seen by Provider: 23:17 Initial Comments 75-year-old female presents with right flank pain, nausea and dry heaves.. Patient reports that she has had more frequent urination today. Patient denies abdominal pain, cough or other systemic complaints. She reports that the flank pain started around 8 PM with the nausea around 10 in the dry heaves just prior to arrival. Allergies and Home Medications Allergies Coded Allergies: No Known Drug Allergies (Unverified , 03/28/19) Home Medications Aspirin 81 Mg Tab.chew, 81 MG PO DAILY Prescribed by: MOHINI TOLENTINO on 03/31/19 0854 Atorvastatin Calcium 40 Mg Tablet, 80 MG PO HS Prescribed by: MOHINI TOLENTINO on 03/31/19 0854 Lisinopril 5 Mg Tablet, 5 MG PO DAILY Prescribed by: MOHIIN TOLENTINO on 03/31/19 0854 Metoprolol Tartrate 25 Mg Tablet, 25 MG PO BID Prescribed by: MOHINI TOLENTINO on 03/31/19 0854 Ticagrelor 90 Mg Tablet, 90 MG PO BID Prescribed by: MOHINI TOLENTINO on 03/31/19 0854 Vit A/Vit C/Vit E/Zinc/Copper 1 Each Tablet, 1 TAB PO BID, (Reported) Patient Home Medication List Home Medication List Reviewed: Yes Review of Systems Review of Systems Constitutional: No chills, No dizziness, No fever Respiratory: No cough, No short of breath Cardiovascular: No chest pain, No palpitations Gastrointestinal: No abdominal pain, No diarrhea; nausea Genitourinary: see HPI, frequency Musculoskeletal: back pain Skin: no symptoms reported Psychiatric/Neurological: No Symptoms Reported Hematologic/Lymphatic: No Symptoms Reported Past Znsegbg-Avetid-Juipni Hx Past Med/Social Hx: Reviewed Nursing Past Med/Soc Hx Patient Social History 2nd Hand Smoke Exposure: No Recent Hopitalizations: No Seasonal Allergies Seasonal Allergies: No Past Medical History Surgeries: No Respiratory: No Cardiac: No Neurological: No Genitourinary: No Gastrointestinal: No Musculoskeletal: No Endocrine: No HEENT: Yes Macular Degeneration Cancer: No Psychosocial: No Integumentary: No Blood Disorders: No Physical Exam Vital Signs Vital Signs - First Documented 08/11/20 23:10 Temp 36.5 Pulse 78 Resp 16 B/P (MAP) 201/82 (121) Pulse Ox 99 O2 Delivery Room Air Capillary Refill : Height, Weight, BMI Height: '" Weight: lbs. oz. kg; 28.51 BMI Method: General Appearance: Mild Distress Respiratory: Lungs Clear, Normal Breath Sounds Cardiovascular: Regular Rate, Rhythm, No Edema Gastrointestinal: Non Tender, Soft Extremity: Normal Capillary Refill, Normal Inspection Neurologic/Psychiatric: Alert, Oriented x3, No Motor/Sensory Deficits, Normal Mood/Affect Skin: Normal Color, Warm/Dry Progress/Results/Core Measures Suspected Sepsis SIRS Temperature: Pulse: Respiratory Rate: Laboratory Tests 08/11/20 23:25: White Blood Count 12.6H Blood Pressure / Mean: Laboratory Tests 08/11/20 23:25: Creatinine 0.83, Platelet Count 232, Total Bilirubin 0.5 Results/Orders Lab Results Laboratory Tests Test 08/11/20 23:20 08/11/20 23:25 Range/Units Urine Color YELLOW Urine Clarity CLOUDY Urine pH 7.5 5-9 Urine Specific [place] 1.025 H 1.016-1.022 Urine Protein 2+ H NEGATIVE Urine Glucose (UA) NEGATIVE NEGATIVE Urine Ketones TRACE H NEGATIVE Urine Nitrite POSITIVE H NEGATIVE Urine Bilirubin NEGATIVE NEGATIVE Urine Urobilinogen NORMAL < = 1.0 MG/DL Urine Leukocyte Esterase 3+ H NEGATIVE Urine RBC (Auto) 3+ H NEGATIVE Urine RBC TNTC H /HPF Urine WBC TNTC H /HPF Urine Crystals NONE /LPF Urine Bacteria LARGE H /HPF Urine Casts NONE /LPF Urine Mucus NEGATIVE /LPF Urine Culture Indicated YES White Blood Count 12.6 H 4.3-11.0 10^3/uL Red Blood Count 4.15 L 4.35-5.85 10^6/uL Hemoglobin 12.5 11.5-16.0 G/DL Hematocrit 38 35-52 % Mean Corpuscular Volume 91 80-99 FL Mean Corpuscular Hemoglobin 30 25-34 PG Mean Corpuscular Hemoglobin Concent 33 32-36 G/DL Red Cell Distribution Width 13.1 10.0-14.5 % Platelet Count 232 130-400 10^3/uL Mean Platelet Volume 10.1 7.4-10.4 FL Immature Granulocyte % (Auto) 0 % Neutrophils (%) (Auto) 75 42-75 % Lymphocytes (%) (Auto) 14 12-44 % Monocytes (%) (Auto) 9 0-12 % Eosinophils (%) (Auto) 2 0-10 % Basophils (%) (Auto) 1 0-10 % Neutrophils # (Auto) 9.4 H 1.8-7.8 X 10^3 Lymphocytes # (Auto) 1.8 1.0-4.0 X 10^3 Monocytes # (Auto) 1.1 H 0.0-1.0 X 10^3 Eosinophils # (Auto) 0.2 0.0-0.3 10^3/uL Basophils # (Auto) 0.1 0.0-0.1 10^3/uL Immature Granulocyte # (Auto) 0.0 0.0-0.1 10^3/uL Sodium Level 139 135-145 MMOL/L Potassium Level 3.7 3.6-5.0 MMOL/L Chloride Level 104 98-107 MMOL/L Carbon Dioxide Level 25 21-32 MMOL/L Anion Gap 10 5-14 MMOL/L Blood Urea Nitrogen 14 7-18 MG/DL Creatinine 0.83 0.60-1.30 MG/DL Estimat Glomerular Filtration Rate > 60 BUN/Creatinine Ratio 17 Glucose Level 122 H 70-105 MG/DL Calcium Level 9.8 8.5-10.1 MG/DL Corrected Calcium 9.6 8.5-10.1 MG/DL Total Bilirubin 0.5 0.1-1.0 MG/DL Aspartate Amino Transf (AST/SGOT) 40 H 5-34 U/L Alanine Aminotransferase (ALT/SGPT) 36 0-55 U/L Alkaline Phosphatase 97 40-136 U/L Total Protein 7.1 6.4-8.2 GM/DL Albumin 4.2 3.2-4.5 GM/DL My Orders Orders - REID,JENNIFER L DO Cbc With Automated Diff (08/11/20 23:22) Comprehensive Metabolic Panel (08/11/20 23:22) Ua Culture If Indicated (08/11/20 23:22) Ct Abdomen/Pelvis Wo (08/11/20 23:22) Ed Iv/Invasive Line Start (08/11/20 23:22) Ketorolac Injection (Toradol Injection) (08/11/20 23:22) Ondansetron Injection (Zofran Injectio (08/11/20 23:30) Ns Iv 1000 Ml (Sodium Chloride 0.9%) (08/11/20 23:22) Ed Iv/Invasive Line Start (08/11/20 23:22) Ns Iv 500 Ml (Sodium Chloride 0.9%) (08/11/20 23:30) Urine Culture (08/11/20 23:20) Ceftriaxone For Iv Use (Rocephin For I (08/12/20 00:01) Medications Given in ED Current Medications Medications Dose Ordered Sig/Yolanda Route Start Time Stop Time Status Last Admin Dose Admin Ondansetron HCl 4 mg ONCE ONCE IVP 08/11/20 23:30 08/11/20 23:31 DC 08/11/20 23:34 4 MG Sodium Chloride 500 ml @ 0 mls/hr Q0M ONCE IV 08/11/20 23:30 08/11/20 23:31 DC 08/11/20 23:34 999 MLS/HR Vital Signs/I&O 08/11/20 23:10 Temp 36.5 Pulse 78 Resp 16 B/P (MAP) 201/82 (121) Pulse Ox 99 O2 Delivery Room Air Capillary Refill : Progress Note : Progress Note Patient with urinary tract infection, bilateral hydronephrosis on CT. No stone noted. I will treat her with Rocephin IV in the ER and send her home on Keflex. She should follow-up with her primary care provider for further evaluation and recheck in 3 to 4 days. Patient stable and discharged home Diagnostic Imaging Diagonstic Imaging: CT Plain Films/CT/US/NM/MRI: abdomen Comments Bilateral hydronephrosis, no stone, likely obstructive uropathy from prolapse of the bladder Reviewed: Reviewed Night [facility] Study Departure Impression Primary Impression: Urinary tract infection Qualified Codes: N30.01 - Acute cystitis with hematuria Disposition: HOME, SELF-CARE Condition: Stable Departure-Patient Inst. Referrals: RODRIGO MORAN MD (PCP/Family) Primary Care Physician Patient Instructions: Urinary Tract Infection, Adult (DC) Add. Discharge Instructions: Drink plenty of fluids, follow-up with your primary care provider in 3 to 4 days for recheck of your urine and ensure that you are improving. Scripts Ondansetron (Ondansetron Odt) 4 Mg Tab.rapdis 4 MG PO Q6H PRN for NAUSEA/VOMITING, #20 TAB 0 Refills Prov: JENNIFER REID DO 08/12/20 Cephalexin (Cephalexin) 500 Mg Tablet 500 MG PO QID, #20 TAB 0 Refills Prov: JENNIFER REID DO 08/12/20 JENNIFER REID DO August 11, 2020 23:22
[2020-08-11 23:30] LABS: BASOPHILS # (AUTO) 0.1 10^3/uL (0.0-0.1); BASOPHILS % (AUTO) 1 % (0-10); EOSINOPHILS # (AUTO) 0.2 10^3/uL (0.0-0.3); EOSINOPHILS % (AUTO) 2 % (0-10); HEMATOCRIT 38 % (35-52); HEMOGLOBIN 12.5 G/DL (11.5-16.0); LYMPHOCYTES # (AUTO) 1.8 X 10^3 (1.0-4.0); LYMPHOCYTES % (AUTO) 14 % (12-44); MEAN CORPUSCULAR HEMOGLOBIN 30 PG (25-34); MEAN CORPUSCULAR HGB CONC 33 G/DL (32-36); MEAN CORPUSCULAR VOLUME 91 FL (80-99); MEAN PLATELET VOLUME 10.1 FL (7.4-10.4); MONOCYTES # (AUTO) 1.1 X 10^3 (0.0-1.0); MONOCYTES % (AUTO) 9 % (0-12); NEUTROPHILS # (AUTO) 9.4 X 10^3 (1.8-7.8); NEUTROPHILS % (AUTO) 75 % (42-75); PLATELET COUNT 232 10^3/uL (130-400); WHITE BLOOD COUNT 12.6 10^3/uL (4.3-11.0)
[2020-08-11] MEDS ORDERED: ONDANSETRON 4 MG/2 ML (SDV) Z0FRAN IVP ONE (23:30)
[2020-08-11] MEDS ORDERED: NS IV 500 ML 500 ML IV ONE (23:30)
[2020-08-11 23:35] LABS: BILIRUBIN,URINE NEGATIVE (NEGATIVE); CLARITY,URINE CLOUDY; COLOR,URINE YELLOW; GLUCOSE, URINE (UA) NEGATIVE (NEGATIVE); KETONES,URINE TRACE (NEGATIVE); LEUKOCYTE ESTERASE ,URINE 3+ (NEGATIVE); NITRITE,URINE POSITIVE (NEGATIVE); PH,URINE 7.5 (5-9); PROTEIN,URINE 2+ (NEGATIVE); RBC,URINE TNTC /HPF; WBC,URINE TNTC /HPF
[2020-08-11 23:36] LABS: BACTERIA,URINE LARGE /HPF
[2020-08-11 23:54] LABS: BUN/CREATININE RATIO 17; CALCIUM 9.8 MG/DL (8.5-10.1); CARBON DIOXIDE 25 MMOL/L (21-32); CHLORIDE 104 MMOL/L (98-107); CREATININE SERUM 0.83 MG/DL (0.60-1.30); GFR ESTIMATED > 60; GLUCOSE 122 MG/DL (70-105); POTASSIUM 3.7 MMOL/L (3.6-5.0); SODIUM 139 MMOL/L (135-145)
[2020-08-11 23:55] LABS: ALANINE AMINOTRANSFERASE 36 U/L (0-55); ALBUMIN 4.2 GM/DL (3.2-4.5); ALKALINE PHOSPHATASE 97 U/L (40-136); BILIRUBIN,TOTAL 0.5 MG/DL (0.1-1.0); TOTAL PROTEIN 7.1 GM/DL (6.4-8.2)
[2020-08-12] MEDS ORDERED: cefTRIAXone FOR IV USE 1,000 MG in WATER (STERILE) FOR INJECTION 10 ML IV STA (00:01)
[2020-08-12] MEDS ORDERED: CEPH500T PO (00:06)
[2020-08-12] MEDS ORDERED: ONDA4TAB11 PO (00:06)
[2020-08-12 00:37] VITALS: BP 166/78
--- NOTE | 2020-08-12 08:08 | Diagnostic Imaging Report ---
PROCEDURE: CT abdomen and pelvis without contrast. TECHNIQUE: Multiple contiguous axial images were obtained through the abdomen and pelvis without the use of intravenous contrast. Auto Exposure Controls were utilized during the CT exam to meet ALARA standards for radiation dose reduction. INDICATION: Right flank pain starting earlier today. Intermittent nausea. CORRELATION STUDY: None. FINDINGS: LOWER THORAX: Heart size normal. Coronary artery calcification likely stents. Lung bases clear. Small hiatal hernia. LIVER: Unremarkable. GALLBLADDER: Present and unremarkable. No bile duct dilatation. SPLEEN: Unremarkable. PANCREAS: Unremarkable. ADRENAL GLANDS: Unremarkable. KIDNEYS: Bilateral hydronephrosis right greater than left. Findings are moderately severe on the right. Prolapsed bladder may be underlying etiology of the obstructive uropathy. ABDOMINAL AORTA: Moderate aortoiliac wall calcification. GASTROINTESTINAL TRACT: Scattered colonic diverticulosis without evidence for acute diverticulitis. No obstruction or inflammatory change. URINARY BLADDER: Significant bladder prolapse present. REPRODUCTIVE: Not well visualized but there also appears to be prolapsed. OSSEOUS STRUCTURES: Mild advanced degenerative changes thoracic and lumbar spine. Mild to moderately advanced degenerative changes both hips left greater than right. OTHER: None. IMPRESSION: 1. Bilateral hydronephrosis right greater than left which is moderately severe on the right. There is prolapse of the bladder, likely etiology is generally obstructive uropathy. 2. Colonic diverticulosis without evidence for acute diverticulitis. A preliminary report was provided by [employer]. Dictated by: Dictated on workstation # [id number]
== END 2020-08-12 00:37 | disposition home or self-care (01) ==
LOC: EDUNIT# 23:08 → ER FS 23:10
DX: N13.6 Pyonephrosis (principal)
CPT/HCPCS: 36415; 74176; 80053; 81000; 85025; 87077; 87088; 87186

== ENCOUNTER → 2021-10-12 | Outpatient (CLI) | payer MEDICARE ==
[~2021-10-12] MED LIST changes: +CATHETER FLUSH 10 ML SYR IVP PRN; +CEPH500T PO; -LISI-729 PO; +LISI5TAB20 PO; +ONDA4TAB11 PO; +REGADENOSON 0.4 MG/5 ML SYR (LEXISCAN) IV ONE
[2021-10-12 09:23] VITALS: BP 193/110
== END ==
LOC: CARD 08:15
PROVIDERS: ATTEND Nurse Practitioner Family
DX: I25.10 Atherosclerotic heart disease of native coronary artery without angina pectoris (principal)
CPT/HCPCS: 78452; 93017; A9502

== ENCOUNTER 2022-01-14 18:48 | Emergency (ER) | payer MEDICARE ==
[~2022-01-14] VITALS: Ht 162.5 cm; Wt 58.6 kg
[~2022-01-14 18:48] MED LIST changes: -CATHETER FLUSH 10 ML SYR IVP PRN; -REGADENOSON 0.4 MG/5 ML SYR (LEXISCAN) IV ONE
[2022-01-14 18:51] VITALS: BP 187/83
--- NOTE | 2022-01-14 19:12 | ED Fall/Injury ---
General Chief Complaint: Trauma-Non Activation Stated Complaint: FELL/LT HAND/WRIST Nursing Triage Note: Fall on stairs Source: patient Exam Limitations: no limitations History of Present Illness Date Seen by Provider: Jan 14, 2022 Time Seen by Provider: 18:52 Initial Comments 76-year-old female coming in after she tripped down some stairs roughly 7 hours ago landing on her left hand and her chin. Did not pass out, remembers all events, no headache, no neck pain, no back pain, no weakness, no numbness, or any other concerns. Does take Plavix daily. Endorses a small cut to her chin. Last tetanus shot was about a year ago. Has been ambulatory since then. Took a narcotic pain medicine that she had at home which did help with the pain in her hand. She is otherwise denying any other acute complaints Allergies and Home Medications Allergies Coded Allergies: No Known Drug Allergies (Unverified , 03/28/19) Patient Home Medication List Home Medication List Reviewed: Yes Aspirin (Aspirin) 81 Mg Tab.chew, 81 MG PO DAILY Prescribed by: MOHINI TOLENTINO on 03/31/19 08 Atorvastatin Calcium (Lipitor) 40 Mg Tablet, 80 MG PO HS Prescribed by: MOHINI TOLENTINO on 03/31/19 0854 Cephalexin (Cephalexin) 500 Mg Tablet, 500 MG PO QID Prescribed by: JENNIFER REID on 08/12/205 Lisinopril (Lisinopril) 5 Mg Tablet, 5 MG PO DAILY Prescribed by: MOHINI TOLENTINO on 03/31/19 08 Metoprolol Tartrate (Metoprolol Tartrate) 25 Mg Tablet, 25 MG PO BID Prescribed by: MOHINI TOLENTINO on 03/31/19 0854 Ondansetron (Ondansetron Odt) 4 Mg Tab.rapdis, 4 MG PO Q6H PRN for NAUSEA/VOMITI NG Prescribed by: JENNIFER REID on 08/12/205 Ticagrelor (Brilinta) 90 Mg Tablet, 90 MG PO BID Prescribed by: MOHINI TOLENTINO on 03/31/19 0854 Vit A/Vit C/Vit E/Zinc/Copper (Preservision Areds Tablet) 1 Each Tablet, 1 TAB PO BID, (Reported) Entered as Reported by: JUAN PALMER on 03/29/19 6729 Review of Systems Review of Systems Constitutional: No fever Eyes: No Symptoms Reported Ears, Nose, Mouth, Throat: no symptoms reported Respiratory: no symptoms reported Cardiovascular: no symptoms reported Gastrointestinal: no symptoms reported Genitourinary: no symptoms reported Musculoskeletal: see HPI Skin: see HPI Psychiatric/Neurological: No Symptoms Reported All Other Systems Reviewed Negative Unless Noted: Yes Past Ltclrvf-Tcaobu-Gkgedk Hx Patient Social History Tobacco Use?: No Substance use?: No Alcohol Use?: No Seasonal Allergies Seasonal Allergies: No Past Medical History Surgeries: No Respiratory: No Cardiac: No Neurological: No Genitourinary: No Gastrointestinal: No Musculoskeletal: No Endocrine: No HEENT: Yes Macular Degeneration Cancer: No Psychosocial: No Integumentary: No Blood Disorders: No Physical Exam Vital Signs Vital Signs - First Documented Capillary Refill : Less Than 3 Seconds Height, Weight, BMI Height: '" Weight: lbs. oz. kg; 28.51 BMI Method: General Appearance: WD/WN, no apparent distress HEENT: PERRL/EOMI, normal ENT inspection, pharynx normal Neck: non-tender, full range of motion, supple, normal inspection Cardiovascular: regular rate, rhythm, no edema, no murmur Respiratory: chest non-tender, lungs clear, normal breath sounds, no respiratory distress, no accessory muscle use Gastrointestinal: normal bowel sounds, non tender, soft; No distended, No guarding, No rebound Back: normal inspection, no CVA tenderness, no vertebral tenderness Extremities: normal range of motion, no pedal edema, no calf tenderness, normal capillary refill, other (L thumb tenderness and distal ulna tenderness) 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 Closed with tissue adhesive as well as Steri-Strips with patient tolerated the procedure Progress/Results/Core Measures Results/Orders My Orders Orders - MICHAELA HERNANDEZ MD Wrist 3 View Left (01/14/22 18:58) Hand 3 View Left (01/14/22 18:58) Knee 3 View Left (01/14/22 18:58) Ct Head Wo (01/14/22 19:08) Acetaminophen Tablet (Tylenol Tablet) (01/14/22 20:00) Vital Signs/I&O 01/14/22 01/14/22 18:51 18:51 Temp 37.0 37.0 Pulse 76 76 Resp 14 14 B/P (MAP) 187/83 (117) 187/83 (117) Pulse Ox 98 98 O2 Delivery Room Air Room Air Blood Pressure Mean: 117 Progress Progress Note : Progress Note 76-year-old female with above history coming in after she tripped on some stairs having some left hand pain, left knee pain, and a chin laceration. ABCs were intact, vital signs stable, GCS 15 on presentation. She was given Tylenol for pain. Physical exam with some tenderness along the distal left ulna and base of the thumb, no scaphoid tenderness. Neurovascularly intact. The wound was cleaned and closed with glue and Steri-Strips. X-ray of the left hand, left wrist, left knee ordered and interpreted by me showing no fracture or dislocation, but she does have severe arthritis. CT head also negative for any acute findings. Tetanus is up-to-date already for the patient. I believe she is otherwise stable for discharge with outpatient follow-up. She was at home with strict return precautions. Diagnostic Imaging Diagonstic Imaging: Xray (left hand, left wrist, left knee), CT (head) Comments [facility], [place] NAME: KORIN SOSA [facility] REC#: [id number] PT STATUS: REG ER : 1945 PHYSICIAN: MICHAELA HERNANDEZ MD ADMIT DATE: 01/14/22/ER FS Draft Date of Exam:01/14/22 CT HEAD WO EXAMINATION: CT head without contrast. TECHNIQUE: Multiple contiguous axial images were obtained through the brain without the use of intravenous contrast. All CT scans use one or more of the following dose optimizing techniques: automated exposure control, MA and/or KvP adjustment based on patient size and exam type or iterative reconstruction. HISTORY: Head injury. COMPARISON: None available. FINDINGS: The ayala-white matter differentiation is normal. No mass effect or midline shift. The ventricles are normal in size and configuration. Basilar cisterns are patent. There are no intra-axial or extra-axial fluid collection. There is no intracranial hemorrhage. The orbits are normal. Paranasal sinuses are normal. Mastoid air cells are clear. No soft tissue abnormality is seen. No osseus lesions or fractures are seen. IMPRESSION: No acute intracranial abnormality. Dictated on workstation # [id number] Dict: 01/14/221939 Trans: 01/14/221942 [facility] [phone] Interpreted by: SMITA RODRIGUEZ MD Electronically signed by: [facility] [place], [place] NAME: KORIN SOSA [facility] REC#: [id number] PT STATUS: REG ER : 1945 PHYSICIAN: MICHAELA HERNANDEZ MD ADMIT DATE: 01/14/22/ER FS Draft Date of Exam:01/14/22 HAND 3 VIEW LEFT EXAMINATION: Left hand 3 views. HISTORY: Wrist injury. COMPARISON: None available. FINDINGS: There is moderate first carpometacarpal joint osteoarthritis. There is moderate distal interphalangeal osteoarthritis of the second through fifth fingers. No fracture. No dislocation. IMPRESSION: No acute fracture is seen in the left hand. Dictated on workstation # [id number] Dict: 01/14/221940 Trans: 01/14/221942 [facility] [phone] Interpreted by: SMITA RODRIGUEZ MD Electronically signed by: NAME: KORIN SOSA MED REC#: [id number] PT STATUS: REG ER : 1945 PHYSICIAN: MICHAELA HERNANDEZ MD ADMIT DATE: 01/14/22/ER FS Draft Date of Exam:01/14/22 WRIST 3 VIEW LEFT EXAMINATION: Left wrist 3 or more views. HISTORY: Wrist injury. COMPARISON: None available. FINDINGS: There is moderate first carpal metacarpal joint arthritis. No acute fracture. No dislocation. IMPRESSION: No fracture in the left wrist. Dictated on workstation # [id number] Dict: 01/14/221941 Trans: 01/14/221944 [facility] [phone] Interpreted by: SMITA RODRIGUEZ MD Electronically signed by: [facility] [place] NAME: KORIN SOSA [facility] REC#: [id number] PT STATUS: REG ER : 1945 PHYSICIAN: MICHAELA HERNANDEZ MD ADMIT DATE: 01/14/22/ER FS Draft Date of Exam:01/14/22 KNEE 3 VIEW LEFT EXAM: Knee 3 view left INDICATION: Fall. Left knee pain. COMPARISON: None. FINDINGS: Moderate left knee joint effusion. Moderate tricompartmental degenerative changes. Osseous body medial to the left medial femoral condyle appears chronic. No acute fracture is identified. Vascular calcifications. IMPRESSION: 1. No acute fracture in the left knee. 2. Moderate left knee joint effusion. 3. Moderate tricompartmental degenerative changes. Dictated on workstation # [id number] Dict: 01/14/221941 Trans: 01/14/221945 [facility] [phone] Interpreted by: ERICK DAWKINS MD Electronically signed by: Departure Impression Primary Impression: Fall Qualified Codes: W19.XXXA - Unspecified fall, initial encounter Additional Impressions: Contusion of left wrist Qualified Codes: S60.212A - Contusion of left wrist, initial encounter Chin laceration Qualified Codes: S01.81XA - Laceration without foreign body of other part of head, initial encounter Disposition: 01 HOME, SELF-CARE Condition: Stable Departure-Patient Inst. Decision time for Depature: 20:00 Referrals: RODRIGO MORAN MD (PCP/Family) Primary Care Physician Patient Instructions: Laceration Repair With Glue ED Add. Discharge Instructions: Fortunately nothing is broken, he does have some bruising and soft tissue injury. This will get better with time. Take Tylenol and ice as needed. The CT of her head also was normal without any injury or internal bleeding. Try to keep the Steri-Strips on your chin for about 5 days. After that you can let it fall off on its own. MICHAELA HERNANDEZ MD Jan 14, 2022 19:12
--- NOTE | 2022-01-14 19:43 | Diagnostic Imaging Report ---
EXAMINATION: CT head without contrast. TECHNIQUE: Multiple contiguous axial images were obtained through the brain without the use of intravenous contrast. All CT scans use one or more of the following dose optimizing techniques: automated exposure control, MA and/or KvP adjustment based on patient size and exam type or iterative reconstruction. HISTORY: Head injury. COMPARISON: None available. FINDINGS: The ayala-white matter differentiation is normal. No mass effect or midline shift. The ventricles are normal in size and configuration. Basilar cisterns are patent. There are no intra-axial or extra-axial fluid collection. There is no intracranial hemorrhage. The orbits are normal. Paranasal sinuses are normal. Mastoid air cells are clear. No soft tissue abnormality is seen. No osseus lesions or fractures are seen. IMPRESSION: No acute intracranial abnormality. Dictated by: Dictated on workstation # [id number]
--- NOTE | 2022-01-14 19:44 | Diagnostic Imaging Report ---
EXAMINATION: Left hand 3 views. HISTORY: Wrist injury. COMPARISON: None available. FINDINGS: There is moderate first carpometacarpal joint osteoarthritis. There is moderate distal interphalangeal osteoarthritis of the second through fifth fingers. No fracture. No dislocation. IMPRESSION: No acute fracture is seen in the left hand. Dictated by: Dictated on workstation # [id number]
--- NOTE | 2022-01-14 19:46 | Diagnostic Imaging Report ---
EXAMINATION: Left wrist 3 or more views. HISTORY: Wrist injury. COMPARISON: None available. FINDINGS: There is moderate first carpal metacarpal joint arthritis. No acute fracture. No dislocation. IMPRESSION: No fracture in the left wrist. Dictated by: Dictated on workstation # [id number]
--- NOTE | 2022-01-14 19:47 | Diagnostic Imaging Report ---
EXAM: Knee 3 view left INDICATION: Fall. Left knee pain. COMPARISON: None. FINDINGS: Moderate left knee joint effusion. Moderate tricompartmental degenerative changes. Osseous body medial to the left medial femoral condyle appears chronic. No acute fracture is identified. Vascular calcifications. IMPRESSION: 1. No acute fracture in the left knee. 2. Moderate left knee joint effusion. 3. Moderate tricompartmental degenerative changes. Dictated by: Dictated on workstation # [id number]
[2022-01-14] MEDS ORDERED: ACETAMINOPHEN 500 MG TAB (TYLENOL) PO ONE (20:00)
== END 2022-01-14 19:56 | disposition home or self-care (01) ==
LOC: EDUNIT# 18:48 → ER FS 18:51
DX: S01.81XA Laceration without foreign body of other part of head, initial encounter (principal); S60.212A Contusion of left wrist, initial encounter; M79.645 Pain in left finger(s); M79.642 Pain in left hand; Z28.310 Unvaccinated for COVID-19; Z79.02 Long term (current) use of antithrombotics/antiplatelets; W10.9XXA Fall (on) (from) unspecified stairs and steps, initial encounter
CPT/HCPCS: 70450; 73110; 73130; 73562